=== PATIENT | male | born 1965 | race Caucasian/White ===

== ENCOUNTER 2019-02-20 07:21 | Day surgery (SDC) | payer BC, MEDICARE ==
[2019-02-18 11:22] VITALS: BMI 40.6
[~2019-02-20 07:21] MED LIST: LACTATED RINGERS 1,000 ML IV SCH; LIDOCAINE 1% 20 ML VIAL (10MG/ML) FOR IV START INTRADERMA PRN
[2019-02-20] MEDS ORDERED: LACTATED RINGERS 1,000 ML IV ONE (07:44)
[2019-02-20 08:04] VITALS: TEMP 97.5
[2019-02-20] MEDS ORDERED: fentaNYL (PF) 50 MCG/ML 2 ML AMP ONE (08:05)
[2019-02-20] MEDS ORDERED: MIDAZOLAM 2 MG/2 ML VIAL ONE (08:05)
[2019-02-20] MEDS ORDERED: PROPOFOL 10 MG/ML 20 ML VIAL IV ONE (08:05)
[2019-02-20] MEDS ORDERED: LIDOCAINE 1% INJ 10MG/ML (20 ML MDV) ONE (08:05)
[2019-02-20 08:06] LABS: Glucose,Whole Blood 141 mg/dL (75-99)
--- NOTE | 2019-02-20 08:07 | P.GSHP ---
History of Present Illness H&P Date: 02/20/19 CHIEF COMPLAINT: Esophageal stricture HISTORY OF PRESENT ILLNESS: The patient is a 53-year-old male who presents reports dysphagia. Upper endoscopy was offered for further evaluation and management. PAST MEDICAL HISTORY: Please see list. PAST SURGICAL HISTORY: Please see list. MEDICATIONS: Please see list. ALLERGIES: Please see list. SOCIAL HISTORY: No illicit drug use FAMILY HISTORY: No reports of Crohn disease or ulcerative colitis. REVIEW OF ORGAN SYSTEMS: CONSTITUTIONAL: No reports of fevers or chills. GI: Denies any blood in stools or constipation. PHYSICAL EXAM: VITAL SIGNS: Stable GENERAL: Well-developed and pleasant in no acute distress. HEENT: No scleral icterus. Extraocular movements grossly intact. Moist buccal mucosa. NECK: Supple without lymphadenopathy. CHEST: Unlabored respirations. Equal bilateral excursions. CARDIOVASCULAR: Regular rate and rhythm. Distal 2+ pulses. ABDOMEN: Soft, nondistended. MUSCULOSKELETAL: No clubbing, cyanosis, or edema. ASSESSMENT: 1. Esophageal stricture PLAN: 1. Recommend proceeding with an upper endoscopy with rigid dilators. Past Medical History Past Medical History: Diabetes Mellitus, GERD/Reflux, Musculoskeletal Disorder, Sleep Apnea/CPAP/BIPAP Additional Past Medical History / Comment(s): C/O HARD TIME SWALLOWING FOOD, LIQUIDS. OFF DM RX SINCE 2014 D/T WGT LOSS OF 50#, NOW DIET CONTROLLED. QUADRIPLEGIC SINCE 1985; HAS COLOSTOMY, SUPRAPUBIC CATHETER. BACK PAIN. USES CPAP. History of Any Multi-Drug Resistant Organisms: MRSA Date of last positivie culture/infection: 2012 MDRO Source:: BUTTOCK Past Surgical History: Bladder Surgery, Bowel Resection, Cholecystectomy Additional Past Surgical History / Comment(s): COLOSTOMY, SUPRAPUBIC CATH. SKIN GRAFT FLAP ON BUTTOCK. C5 FUSION Past Anesthesia/Blood Transfusion Reactions: No Reported Reaction Smoking Status: Never smoker - Past Family History Mother Family Medical History: No Reported History Medications and Allergies Home Medications Medication Instructions Recorded Confirmed Type Aspirin [Adult Low Dose Aspirin EC] 81 mg PO DAILY 02/18/19 02/18/19 History Baclofen [Lioresal] 10 mg PO BID 02/18/19 02/20/19 History Citrucel (Capsule) 2 tab PO BID 02/18/19 History Mobic (Unknown Dose) 7.5 tab PO DAILY 02/18/19 History Allergies Allergy/AdvReac Type Severity Reaction Status Date / Time vancomycin AdvReac "SHUT Verified 02/20/19 07:52 KIDNEYS DOWN" Surgical - Exam Vital Signs Temp 97.5 F L 02/20/19 07:49 Results - Labs Abnormal Lab Results - Last 24 Hours (Table) 02/20/19 Range/Units 08:00 POC Glucose (mg/dL) 141 H (75-99) mg/dL
--- NOTE | 2019-02-20 08:25 | P.PCN ---
Date of Procedure: 02/20/19 Description of Procedure: PREOPERATIVE DIAGNOSIS: Dysphagia. Gastroesophageal reflux disease Morbid obesity excess calories, BMI 40.7 Paraplegia Esophageal stricture POSTOPERATIVE DIAGNOSIS: Dysphagia. Gastroesophageal reflux disease Morbid obesity excess calories, BMI 40.7 Paraplegia Esophageal stricture Gastritis OPERATION: Esophagogastroduodenoscopy with rigid dilator over the guidewire 54 Fr. Esophagogastroduodenoscopy with cold forceps biopsies along antrum SURGEON: Roberta López MD ANESTHESIA: MAC. INDICATIONS: The patient is a 53-year-old male who presents with a history of dysphagia. Benefits and risks of the procedure were described. Informed consent was obtained. DESCRIPTION: The patient was brought into the endoscopy suite and laid in the left lateral decubitus position. After a timeout was confirmed, the procedure was initiated. An Olympus gastroscope was passed and the stomach was entered. Mild gastritis was identified. The scope was advanced to the duodenum which was unremarkable. Retroflexion the scope confirmed a Hill grade 1 lower esophageal valve. Next using an Salvadorean rigid dilator, a guidewire was placed through the pediatric gastroscope. Next the scope was withdrawn. A 54-Cameroonian rigid Salvadorean dilator was passed carefully along the posterior oropharynx to 50 cm and left in place for 2-3 minutes stretch. The dilator was withdrawn including the guidewire. The scope was reentered along the posterior oropharynx with no findings of full-thickness tear of the upper esophageal sphincter. Next, inflammation of the antrum was identified with cold forceps biopsies obtained. No full-thickness injury was encountered. The GI tract was desufflated. The patient tolerated the procedure well. FINDINGS: Squamocolumnar junction unremarkable at 45 cm. Distal esophageal stricture without ulceration Salvadorean rigid dilator 54-Cameroonian completed. No hiatus hernia Diffuse gastritis. Hill grade 1 lower esophageal valve. No LA grade A esophagitis. RECOMMENDATIONS: Upper endoscopy as needed Start omeprazole 20 mg daily Plan - Discharge Summary Discharge Rx Participant: No New Discharge Prescriptions: New Omeprazole [PriLOSEC] 20 mg PO -KFST #30 cap No Action Baclofen [Lioresal] 10 mg PO BID Citrucel (Capsule) 2 tab PO BID Aspirin [Adult Low Dose Aspirin EC] 81 mg PO DAILY Mobic (Unknown Dose) 7.5 tab PO DAILY Discharge Medication List Aspirin [Adult Low Dose Aspirin EC] 81 mg PO DAILY 02/18/19 [History] Baclofen [Lioresal] 10 mg PO BID 02/18/19 [History] Citrucel (Capsule) 2 tab PO BID 02/18/19 [History] Mobic (Unknown Dose) 7.5 tab PO DAILY 02/18/19 [History] Omeprazole [PriLOSEC] 20 mg PO AC-BRKFST #30 cap 02/20/19 [Rx] Follow up Appointment(s)/Referral(s): Rboerta López MD [STAFF PHYSICIAN] - 03/19/19 Patient Instructions/Handouts: Esophageal Dilation (DC), Gastritis (DC) Activity/Diet/Wound Care/Special Instructions: Liquid diet today. Regular diet tomorrow Discharge Disposition: HOME SELF-CARE
[2019-02-20 09:03] VITALS: BP 126/78; PULSE 50; RESP 18
== END 2019-02-20 09:14 | disposition home or self-care (01) ==
LOC: ORWHC2ENDO 07:21
PROVIDERS: ATTEND Surgery Plastic and Reconstructive Surgery
DX: K22.2 Esophageal obstruction (principal); K29.50 Unspecified chronic gastritis without bleeding; K21.9 Gastro-esophageal reflux disease without esophagitis; E11.9 Type 2 diabetes mellitus without complications; E66.01 Morbid (severe) obesity due to excess calories; Z68.41 Body mass index [BMI] 40.0-44.9, adult; G82.50 Quadriplegia, unspecified; Z79.82 Long term (current) use of aspirin; Z88.1 Allergy status to other antibiotic agents; Z93.3 Colostomy status; Z90.49 Acquired absence of other specified parts of digestive tract; Z98.1 Arthrodesis status; Z79.1 Long term (current) use of non-steroidal anti-inflammatories (NSAID); Z79.899 Other long term (current) drug therapy
CPT/HCPCS: 88305; 43239; 43249; J2250; J2001; J3010; J2704

== ENCOUNTER 2023-12-27 09:05 | Day surgery (SDC) | payer MEDICARE ==
[~2023-12-27 09:05] MED LIST changes: +HYDROmorphone 0.5 MG/0.5 ML SYRINGE IVP PRN; -LACTATED RINGERS 1,000 ML IV SCH; +LIDOCAINE 1% (10MG/ML) FOR IV START INTRADERMA PRN; -LIDOCAINE 1% 20 ML VIAL (10MG/ML) FOR IV START INTRADERMA PRN; +droPERidol 5 MG/2 ML VIAL IVP ONE
[2023-12-27 10:04] LABS: Glucose,Whole Blood 104 mg/dL (70-110)
[2023-12-27] MEDS: LACTATED RINGERS 1,000 ML IV SCH (10:23)
[2023-12-27] MEDS: FAMOTIDINE 20 MG/2 ML VIAL IV PRN (10:24)
[2023-12-27] MEDS: ONDANSETRON 4 MG/2 ML VIAL IVP ONE (10:24)
[2023-12-27] MEDS: DEXAMETHASONE SOD PHOSPHATE 4 MG/ML 1 ML VIAL IV ONE (10:24)
[2023-12-27] MEDS: LIDOCAINE 1%-EPI 1:100,000 20 ML VIAL SUBMUCOSAL ONE ×3 (10:57→11:07)
[2023-12-27] MEDS: BACITRACIN ZINC 500 UNIT/GM OINT 28.4 GM TUBE TOPICAL ONE ×2 (10:57→11:07)
[2023-12-27] MEDS ORDERED: GLYCOPYRROLATE 0.2 MG/ML 2 ML VIAL ONE (11:02)
[2023-12-27] MEDS ORDERED: fentaNYL (PF) 50 MCG/ML 2 ML AMP ONE (11:02)
[2023-12-27] MEDS ORDERED: PROPOFOL 10 MG/ML 20 ML VIAL IV ONE (11:02)
[2023-12-27] MEDS ORDERED: ePHEDrine 50 MG/ML 1 ML VIAL ONE (11:02)
[2023-12-27] MEDS ORDERED: MIDAZOLAM 2 MG/2 ML VIAL ONE (11:02)
[2023-12-27] MEDS ORDERED: NEOSTIGMINE 1 MG/ML 10 ML VIAL ONE (11:02)
[2023-12-27] MEDS ORDERED: PHENYLEPHRINE 10 MG/ML VIAL ONE (11:02)
[2023-12-27] MEDS ORDERED: LIDOCAINE 1% INJ 10MG/ML (20 ML MDV) ONE (11:02)
[2023-12-27] MEDS ORDERED: ROCURONIUM 10 MG/ML (5 ML VIAL) IV ONE (11:02)
[2023-12-27] MEDS: OXYMETAZOLINE 0.05% NASL SPRAY 1 SPRAY BOTTLE EA NOSTRIL ONE (11:07)
--- NOTE | 2023-12-27 11:41 | P.OP ---
Date of Procedure: 12/27/23 Preoperative Diagnosis: deviated nasal septum Inferior turbinate hypertrophy Postoperative Diagnosis: same Procedure(s) Performed: septoplasty Outfracture and submucous resection of the inferior turbinates Anesthesia: RAMIROA Surgeon: Mariano Guillen Estimated Blood Loss (ml): 5 Pathology: other (nasal septal bone and cartilage) Condition: stable Disposition: PACU Indications for Procedure: this is a 58-year-old white male who has long-term difficulties with nasal airway obstruction bilaterally but mainly on the left. This is not seasonal. He has failed medical management such as Flonase for his symptoms Operative Findings: nasal septum deviated to the left in the cartilaginous and bony septum approximately 90% obstruction with inferior turbinate hypertrophy bilateral Description of Procedure: DESCRIPTION OF PROCEDURE: The patient was brought to the operative suite, placed in the supine position. The patient underwent induction of general anesthesia with oral endotracheal intubation without difficulty. The patient was prepped and draped in the usual aseptic fashion. 1% lidocaine with 1:100,000 epinephrine was infused submucosally on both sides of the nasal septum. While this was taking vasoconstrictive effect, the inferior turbinates were infractured with a Warwick elevator. Partial submucous resection of the inferior turbinates was performed with Coblation device ablating a portion of the submucosal soft tiss ue. The inferior turbinates were then outfractured with a Warwick elevator. A left hemitransfixion incision was then made through the mucoperichondrial. Mucoperiosteal flap on the left elevated. Bony cartilaginous junction was disarticulated and mucoperiosteal flap on the right was elevated. Bony nasoseptal deformity were removed with Holly forceps and an inferior cartilaginous strip was removed, leaving a full 1.5 cm caudal strut. Checking intranasally, this corrected the nasal septal deformities and the hemitransfixion incision was closed with running 4-0 chromic suture. The bilateral Stallings airway splints coated in bacitracin ointment were placed in the nasal cavities and sutured transseptally with 4-0 nylon suture. The patient was then suctioned in an orogastric fashion. The patient was allowed to emerge from general anesthesia, having tolerated the procedure well and was extubated in the operating suite, transferred to postoperative recovery area in satisfactory condition.
[2023-12-27] MEDS: HYDROmorphone 0.5 MG/0.5 ML SYRINGE IVP ONE (12:06)
[2023-12-27 12:34] VITALS: TEMP 97.1
[2023-12-27 12:52] LABS: Glucose,Whole Blood 123 mg/dL (70-110)
[2023-12-27 13:33] VITALS: BP 116/78; PULSE 72; RESP 18
== END 2023-12-27 13:38 | disposition home or self-care (01) ==
LOC: OR 09:05
PROVIDERS: ATTEND Otolaryngology
DX: J34.2 Deviated nasal septum (principal); J34.3 Hypertrophy of nasal turbinates; E78.5 Hyperlipidemia, unspecified; E11.9 Type 2 diabetes mellitus without complications; E66.01 Morbid (severe) obesity due to excess calories; E07.9 Disorder of thyroid, unspecified; Z68.30 Body mass index [BMI] 30.0-30.9, adult; I48.91 Unspecified atrial fibrillation; K21.9 Gastro-esophageal reflux disease without esophagitis; Z79.899 Other long term (current) drug therapy; Z98.890 Other specified postprocedural states; Z79.01 Long term (current) use of anticoagulants; Z79.890 Hormone replacement therapy
CPT/HCPCS: 30520; J2250; J1100; J2710; J2405; J2001; J3010; J3490; J2704; J1170; J2371